=== PATIENT | female | born 1970 | race Caucasian/White ===

== ENCOUNTER → 2023-12-19 11:30 | Outpatient (REF) | payer OTHER, SELFPAY | LOC: WDC 11:30 | PROVIDERS: ATTENDING PHYSICIAN Internal Medicine | DX: Z12.31 Encounter for screening mammogram for malignant neoplasm of breast (principal) | CPT/HCPCS: 77063; 77067 ==

== ENCOUNTER 2024-08-23 06:22 | Day surgery (SDC) | payer OTHER, SELFPAY ==
[2024-08-23 07:37] LABS: Glucose - Point of Care 120 mg/dl (70-99)
== END 2024-08-23 09:47 | disposition home or self-care (01) ==
LOC: GI 06:22
PROVIDERS: ATTENDING PHYSICIAN Internal Medicine Gastroenterology
DX: Z12.11 Encounter for screening for malignant neoplasm of colon (principal); D12.2 Benign neoplasm of ascending colon; D12.7 Benign neoplasm of rectosigmoid junction; K63.5 Polyp of colon; K62.1 Rectal polyp; K51.40 Inflammatory polyps of colon without complications; Z86.0101 Personal history of adenomatous and serrated colon polyps
CPT/HCPCS: 45385; 45380; 88305; 82962